=== PATIENT | male | born 1950 | race Caucasian/White ===

== ENCOUNTER 2016-07-28 18:02 | Emergency (ER) | payer BC, MEDICARE ==
[2016-07-28 18:38] VITALS: BP 144/83
[2016-07-28] MEDS ORDERED: Lidocaine 1% 50 ML MDV INJECT ONE (19:24)
--- NOTE | 2016-07-28 20:21 | EDM.PDOC ---
ED HPI GENERAL MEDICAL PROBLEM - General Chief Complaint: Upper Extremity Injury/Pain Stated Complaint: L THUMB INJURY Time Seen by Provider: 07/28/16 19:18 Source of Information: Reports: Patient History Limitations: Reports: No Limitations - History of Present Illness INITIAL COMMENTS - FREE TEXT/NARRATIVE: Patient is a 65-year-old male who presents to ED complaining of left thumb pain. Patient accidentally hit his thumb with a rubber mallet while pounding in a spike. Pain is isolated to the distal phalanx. Nailbed has been disrupted. Minimal bleeding present. This occurred at approximately 1630. Tetanus status is up-to-date. He denies any additional complaints. Onset: Today, Sudden Duration: Constant, Waxing/Waning Location: Reports: Upper Extremity, Left Quality: Reports: Ache Severity: Mild Context: Reports: Trauma Left Hand Pain Score (Numeric/FACES): 4 - Related Data Allergies Allergy/AdvReac Type Severity Reaction Status Date / Time codeine Allergy Swelling Verified 07/28/16 18:28 Penicillins Allergy Swelling Verified 07/28/16 18:28 Pertussis Vaccines Allergy Cannot Verified 07/28/16 18:27 Remember Home Meds: Home Meds Aspirin 81 mg PO DAILY 07/28/16 [History] Diclofenac Sodium [Voltaren] 1 - 2 gm TOP BID 07/28/16 [History] Doxycycline [Vibramycin] 100 mg PO Q12HR #14 cap 07/28/16 [Rx] Enalapril Maleate [Vasotec] 20 mg PO DAILY 07/28/16 [History] Pravastatin [Pravachol] 20 mg PO DAILY 07/28/16 [History] Past Medical History HEENT History: Reports: Impaired Vision Cardiovascular History: Reports: High Cholesterol, Hypertension, Other (See Below) Other Cardiovascular History: high calcium Genitourinary History: Reports: UTI, Recurrent Musculoskeletal History: Reports: Arthritis Oncologic (Cancer) History: Reports: Malignant Melanoma - Past Surgical History HEENT Surgical History: Reports: Adenoidectomy, Tonsillectomy Male Surgical History: Reports: Other (See Below) Other Male Surgeries/Procedures: prositis Social & Family History - Family History Family Medical History: Noncontributory Cardiac: Reports: CAD, High Cholesterol, Hypertension Neurological: Reports: Dementia, Parkinson's Immunologic: Reports: None Oncologic: Reports: Lung, Skin - Tobacco Use Smoking Status *Q: Never Smoker - Caffeine Use Caffeine Use: Reports: Coffee - Recreational Drug Use Recreational Drug Use: No Review of Systems - Review of Systems Review Of Systems: See Below Musculoskeletal: Reports: Hand Pain (left thumb) Skin: Reports: Bruising Neurological: Denies: Numbness, Tingling Trauma Exam - Physical Exam Exam: See Below Exam Limited By: No Limitations General Appearance: Reports: Alert, WD/WN, No Apparent Distress Ears: Reports: Hearing Grossly Normal Nose: Reports: Normal Inspection Throat/Mouth: Reports: Normal Voice, No Airway Compromise Neck: Reports: Other (supple) Respiratory Exam: Reports: No Respiratory Distress, No Accessory Muscle Use Cardiovascular: Reports: Normal Peripheral Pulses, Regular Rate, Rhythm Extremities: Other (Distal phalanx of left thumb: mild bleeding present. nailbed pulled away and deformed. hematoma noted. no sensory/motor deficits noted. ) Neurologic: Reports: No Motor/Sensory Deficits, Alert, Normal Mood/Affect, Oriented x 3 Skin: Reports: Normal Color, Warm/Dry ED TRAUMA EXTREMITY PROCEDURES - Laceration/Wound Repair Left Finger Lac/wound length in cm: 0 (nailbed) Anesthetic Type: digital Local anesthesia - Lidocaine (Xylocaine): 1% plain Local anesthetic volume: other (6) Skin prep: saline, sterile drape Exploration/Debridement/Repair: wound explored, in a bloodless field, no foreign material found Closed with: sutures Suture size: 4-0 # of sutures: 3 Suture type: prolene, interrupted, simple Drain placement: No Sterile dressing applied: nurse Tetanus status addressed: Yes Complications: No Course - Vital Signs Last Recorded V/S: Last Vital Signs Temp 97.8 F 07/28/16 18:34 Pulse 104 H 07/28/16 18:34 Resp 16 07/28/16 18:34 BP 144/83 H 07/28/16 18:34 Pulse Ox 96 07/28/16 18:34 - Orders/Labs/Meds Orders: Active Orders 24 hr Category Date Time Status Fingers Thumb Lt FA [CR] Stat Exams 07/28/16 19:23 Taken Meds: Medications Discontinued Medications Generic Name Dose Route Start Last Admin Trade Name Freq PRN Reason Stop Dose Admin Lidocaine HCl 50 ml 07/28/16 19:24 07/28/16 19:29 Xylocaine 1% INJECT 07/28/16 19:25 50 ml ONETIME ONE Administration - Re-Assessments/Exams Free Text/Narrative Re-Assessment/Exam: Ordered x-ray of the left thumb and 1% lidocaine. Tetanus is up to date. X-ray of the thumb revealed fracture to the distal phalanx. Ordered doxycycline 200mg PO now. Unable to completely assess nailbed due to excessive bleeding. Nail bed brought back to the normal anatomical position with no complications. Will discharge patient home with instructions. Prescription for doxycycline provided. Departure - Departure Time of Disposition: 20:52 Disposition: Home, Self-Care 01 Condition: good Clinical Impression: Open fracture of finger of left hand Qualifiers: Encounter type: initial encounter Finger: thumb Phalanx: distal Fracture alignment: nondisplaced Qualified Code(s): S62.525B - Nondisplaced fracture of distal phalanx of left thumb, initial encounter for open fracture - Discharge Information Prescriptions: Doxycycline [Vibramycin] 100 mg PO Q12HR #14 cap Instructions: Finger Fracture, [id number] Referrals: Eric Velasco Jr, MD [Primary Care Provider] - Forms: ED Department Discharge Additional Instructions: Take the doxycycline as prescribed. Keep splint in place for 1 month. Sutures need to be removed in 10 days. Elevate hand when able to reduce swelling and pain. Utilize ice as needed to reduce swelling. Take ibuprofen and tylenol in alternating fashion for pain. Return to the E.D. for increased redness, increased pain, or purulent drainage. - My Orders Last 24 Hours: My Active Orders 07/28/16 19:23 Fingers Thumb Lt FA [CR] Stat - Assessment/Plan Last 24 Hours: My Active Orders 07/28/16 19:23 Fingers Thumb Lt FA [CR] Stat
--- NOTE | 2016-07-29 09:49 | CR ---
Left thumb: Three views of the left thumb were obtained. Slightly comminuted tuft fracture is seen within the distal thumb. Mild degenerative change is noted within the MCP joint and IP joint. Prominent degenerative change is noted at the CMC joint of the thumb. Joint space narrowing also noted off the distal navicular bone. No additional fracture is seen. Impression: 1. Degenerative change within the thumb. 2. Slightly comminuted tuft fracture within the distal left thumb. Diagnostic code #3
== END 2016-07-28 21:02 | disposition home or self-care (01) ==
LOC: JD.ED 18:02
DX: S62.525B Nondisplaced fracture of distal phalanx of left thumb, initial encounter for open fracture (principal); I10 Essential (primary) hypertension; E78.00 Pure hypercholesterolemia, unspecified; M19.90 Unspecified osteoarthritis, unspecified site; Z88.5 Allergy status to narcotic agent; Z88.0 Allergy status to penicillin; Z88.8 Allergy status to other drugs, medicaments and biological substances; Z79.82 Long term (current) use of aspirin; Z79.899 Other long term (current) drug therapy; Z87.440 Personal history of urinary (tract) infections; Z98.890 Other specified postprocedural states; W22.8XXA Striking against or struck by other objects, initial encounter
CPT/HCPCS: 11760; 73140-26-FA; 73140-FA; 99283-25; 99284-25

== ENCOUNTER 2017-03-07 07:09 | Day surgery (SDC) | payer BC, MEDICARE ==
[~2017-03-07 07:09] MED LIST: Lactated Ringers 1,000 ML IV SCH; Lidocaine 1%/Sod Bicarbonate in NS 8.4% 1 ML Syringe IV PRN; Sodium Chloride 0.9% 10 ML Syringe FLUSH PRN
[2017-03-07] MEDS ORDERED: Lidocaine 1% 4 ML ONE (07:20)
[2017-03-07] MEDS ORDERED: Propofol 200 MG/20 ML SDV ONE (07:21)
[2017-03-07] MEDS ORDERED: fentaNYL 100 MCG/2 ML SDV ONE (07:21)
--- NOTE | 2017-03-07 07:23 | PCM.PREANE ---
Preanesthetic Assessment - Anesthesia/Transfusion/Family Hx Anesthesia History: Prior Anesthesia Without Reaction Family History of Anesthesia Reaction: No Transfusion History: No Prior Transfusion(s) Intubation History: Unknown - Review of Systems General: No Symptoms Pulmonary: No Symptoms (QUIT smoking 1982) Cardiovascular: No Symptoms (HTN/CAD), Palpitations Gastrointestinal: No Symptoms (GERD occasionally) Neurological: No Symptoms (bilateral hand pain/history of myalgias/potentially noted essential tremors.), Headache (vertigo/no migraine headaches noted.), Tingling (bilateral finger tips) Other: Reports: Easy Bruising, Sinus Problem (seasonal allergies), Neck Pain ( fell 20 yrs ago with neck pain noted since(no fractures)) - Physical Assessment NPO Status Date: 03/06/17 NPO Status Time: 22:00 Pulse: 81 O2 Sat by Pulse Oximetry: 96 Respiratory Rate: 16 Blood Pressure: 167/93 Temperature: 36.6 C Height: 1.8 m Weight: 125 kg ASA Class: 2 Mental Status: Alert & Oriented x3 Airway Class: Mallampati = 2 Dentition: Reports: Normal Dentition, Caries Thyro-Mental Finger Breadths: 3 Mouth Opening Finger Breadths: 3 ROM/Head Extension: Full Lungs: Clear to Auscultation, Normal Respiratory Effort Cardiovascular: Regular Rate, Regular Rhythm, No Murmurs - Allergies Allergies/Adverse Reactions: Allergies Allergy/AdvReac Type Severity Reaction Status Date / Time codeine Allergy Hives Verified 03/06/17 15:48 morphine Allergy Hives Verified 03/06/17 15:48 Penicillins Allergy Swelling Verified 03/06/17 15:48 Pertussis Vaccines Allergy Hives Verified 03/06/17 15:48 tetanus and diphtheria Allergy Hives Verified 03/06/17 15:48 toxoids - Anesthesia Plan Pre-Op Medication Ordered: None - Acknowledgements Anesthesia Type Planned: MAC Pt an Appropriate Candidate for the Planned Anesthesia: Yes Alternatives and Risks of Anesthesia Discussed w Pt/Guardian: Yes Pt/Guardian Understands and Agrees with Anesthesia Plan: Yes PreAnesthesia Questionnaire HEENT History: Reports: Other (See Below) Other HEENT History: tooth abcess, wears glasses Cardiovascular History: Reports: CAD, High Cholesterol Other Cardiovascular History: high calcium Respiratory History: Reports: None Gastrointestinal History: Reports: Colon Polyp, Other (See Below) Other Gastrointestinal History: amoebic dysentery Genitourinary History: Reports: None CASH ANALYST History: Reports: None Musculoskeletal History: Reports: Other (See Below) Other Musculoskeletal History: myalgia, hand pain/weakness, trench foot Neurological History: Reports: None Psychiatric History: Reports: None Endocrine/Metabolic History: Reports: None Hematologic History: Reports: None Immunologic History: Reports: None Oncologic (Cancer) History: Reports: None Dermatologic History: Reports: None - Past Surgical History Head Surgeries/Procedures: Reports: None HEENT Surgical History: Reports: Other (See Below) Other HEENT Surgeries/Procedures: basal cell carcinoma on ear with excision Cardiovascular Surgical History: Reports: None Respiratory Surgical History: Reports: None GI Surgical History: Reports: Colonoscopy Female Surgical History: Reports: None Male Surgical History: Reports: None Endocrine Surgical History: Reports: None Neurological Surgical History: Reports: None Musculoskeletal Surgical History: Reports: Other (See Below) Other Musculoskeletal Surgeries/Procedures:: right trigger finger release Oncologic Surgical History: Reports: None Dermatological Surgical History: Reports: None - SUBSTANCE USE Smoking Status *Q: Never Smoker Recreational Drug Use History: No - HOME MEDS Home Medications: Home Meds Enalapril Maleate [Vasotec] 20 mg PO DAILY 07/28/16 [History] Pravastatin [Pravachol] 20 mg PO DAILY 07/28/16 [History] Acetaminophen [Tylenol] 650 mg PO Q6H PRN 03/06/17 [History] Chlorthalidone 12.5 mg PO DAILY 03/06/17 [History] Fish Oil/[place]-3 Fatty Acids [Fish Oil 1,000 MG] 1,000 mg PO DAILY 03/06/17 [ History] Gluc 2KCl/Chondr/Semaj Hy/Hy Ac [Glucosamine & Chondroitin Cap] 1 cap PO DAILY [History] Ibuprofen 400 mg PO Q6H PRN 03/06/17 [History] Loratadine [Claritin] 10 mg PO DAILY 03/06/17 [History] Meclizine [Antivert] 25 mg PO DAILY 03/06/17 [History] Milk Thistle Fruit Extract [Milk Thistle] 1 cap PO DAILY 03/06/17 [History] Multivitamin [Zoo Chews] 1 tab PO DAILY 03/06/17 [History] Propylene Glycol/PEG 400/Pf [Systane 0.3-0.4% Eye Drops] 1 drop EYEBOTH BID [History] Ubidecarenone [Coq-10] 100 mg PO DAILY 03/06/17 [History] - CURRENT (IN HOUSE) MEDS Current Meds: Current Medications Lactated Ringer's (Ringers, Lactated) 1,000 mls @ 125 mls/hr IV ASDIRECTED NELSON Stop: 03/07/17 18:00 Lidocaine/Sodium Bicarbonate (Buffered Lidocaine 1% In Ns 8.4%) 0.25 ml IV ONETIME PRN PRN Reason: Prior to IV Start Stop: 03/07/17 18:00 Sodium Chloride (Saline Flush) 10 ml FLUSH ASDIRECTED PRN PRN Reason: Keep Vein Open Stop: 03/07/17 18:00
--- NOTE | 2017-03-07 07:56 | PCM.HP ---
H&P History of Present Illness - General Date of Service: 03/07/17 Admit Problem/Dx: Personal history of colon polyps Family history of colon cancer Source of Information: Patient History Limitations: Reports: No Limitations - History of Present Illness Initial Comments - Free Text/Narative: 66 year old male here for colonoscopy. Last colonoscopy in 2011, 3 adenomatous polyps found. He has a family history of colon cancer on fathers side. No hematochezia or melena. No chest pain or dyspnea on exertion. - Related Data Allergies/Adverse Reactions: Allergies Allergy/AdvReac Type Severity Reaction Status Date / Time codeine Allergy Hives Verified 03/06/17 15:48 morphine Allergy Hives Verified 03/06/17 15:48 Penicillins Allergy Swelling Verified 03/06/17 15:48 Pertussis Vaccines Allergy Hives Verified 03/06/17 15:48 tetanus and diphtheria Allergy Hives Verified 03/06/17 15:48 toxoids Home Medications: Home Meds Enalapril Maleate [Vasotec] 20 mg PO DAILY 07/28/16 [History] Pravastatin [Pravachol] 20 mg PO DAILY 07/28/16 [History] Acetaminophen [Tylenol] 650 mg PO Q6H PRN 03/06/17 [History] Chlorthalidone 12.5 mg PO DAILY 03/06/17 [History] Fish Oil/[place]-3 Fatty Acids [Fish Oil 1,000 MG] 1,000 mg PO DAILY 03/06/17 [ History] Gluc 2KCl/Chondr/Semaj Hy/Hy Ac [Glucosamine & Chondroitin Cap] 1 cap PO DAILY [History] Ibuprofen 400 mg PO Q6H PRN 03/06/17 [History] Loratadine [Claritin] 10 mg PO DAILY 03/06/17 [History] Meclizine [Antivert] 25 mg PO DAILY 03/06/17 [History] Milk Thistle Fruit Extract [Milk Thistle] 1 cap PO DAILY 03/06/17 [History] Multivitamin [Zoo Chews] 1 tab PO DAILY 03/06/17 [History] Propylene Glycol/PEG 400/Pf [Systane 0.3-0.4% Eye Drops] 1 drop EYEBOTH BID [History] Ubidecarenone [Coq-10] 100 mg PO DAILY 03/06/17 [History] Past Medical History HEENT History: Reports: Other (See Below) Other HEENT History: tooth abcess, wears glasses Cardiovascular History: Reports: CAD, High Cholesterol Other Cardiovascular History: high calcium Respiratory History: Reports: None Gastrointestinal History: Reports: Colon Polyp, Other (See Below) Other Gastrointestinal History: amoebic dysentery Genitourinary History: Reports: None HIDE WASHER History: Reports: None Musculoskeletal History: Reports: Other (See Below) Other Musculoskeletal History: myalgia, hand pain/weakness, trench foot Neurological History: Reports: None Psychiatric History: Reports: None Endocrine/Metabolic History: Reports: None Hematologic History: Reports: None Immunologic History: Reports: None Oncologic (Cancer) History: Reports: None Dermatologic History: Reports: None - Past Surgical History Head Surgeries/Procedures: Reports: None HEENT Surgical History: Reports: Other (See Below) Other HEENT Surgeries/Procedures: basal cell carcinoma on ear with excision Cardiovascular Surgical History: Reports: None Respiratory Surgical History: Reports: None GI Surgical History: Reports: Colonoscopy Female Surgical History: Reports: None Male Surgical History: Reports: None Endocrine Surgical History: Reports: None Neurological Surgical History: Reports: None Musculoskeletal Surgical History: Reports: Other (See Below) Other Musculoskeletal Surgeries/Procedures:: right trigger finger release Oncologic Surgical History: Reports: None Dermatological Surgical History: Reports: None Social & Family History - Family History Family Medical History: Noncontributory Cardiac: Reports: CAD, High Cholesterol, Hypertension Neurological: Reports: Dementia, Parkinson's Immunologic: Reports: None Oncologic: Reports: Lung, Skin - Tobacco Use Smoking Status *Q: Never Smoker - Caffeine Use Caffeine Use: Reports: Coffee - Recreational Drug Use Recreational Drug Use: No H&P Review of Systems - Review of Systems: Review Of Systems: See Below General: Reports: No Symptoms Pulmonary: Reports: No Symptoms Cardiovascular: Reports: No Symptoms Gastrointestinal: Reports: No Symptoms Exam - Exam Exam: See Below - Vital Signs Vital Signs: Last Vital Signs Temp 36.6 C 03/07/17 07:41 Pulse 81 03/07/17 07:41 Resp 16 03/07/17 07:41 BP 167/93 H 03/07/17 07:41 Pulse Ox 96 03/07/17 07:41 Weight: 125 kg - Exam General: Alert, Oriented Lungs: Clear to Auscultation, Normal Respiratory Effort Cardiovascular: Regular Rate, Regular Rhythm GI/Abdominal Exam: Normal Bowel Sounds, Soft *Q Meaningful Use (ADM) - VTE *Q VTE Criteria *Q: - Stroke *Q Stroke Criteria *Q: - AMI *Q AMI Criteria *Q: - Problem List (1) Personal history of colonic polyps SNOMED Code(s): 458863318 ICD Code: Z86.010 - PERSONAL HISTORY OF COLONIC POLYPS Status: Acute Current Visit: Yes (2) Family history of colon cancer SNOMED Code(s): 848958353 ICD Code: Z80.0 - FAMILY HISTORY OF MALIGNANT NEOPLASM OF DIGESTIVE ORGANS Status: Acute Current Visit: Yes Problem List Initiated/Reviewed/Updated: Yes Orders Last 24hrs: Active Orders 24 hr Category Date Time Status Peripheral IV Care [RC] . DIRECTED Care 03/07/17 00:01 Active Verify Patient Consent Obtain [RC] ASDIRECTED Care 03/07/17 00:01 Active Lactated Ringers [Ringers, Lactated] 1,000 ml Med 03/07/17 00:01 Active IV ASDIRECTED Lidocaine 1%/Sod Bicarbonate [Buffered Lidocaine 1% in Med 03/07/17 00:01 Active NS 8.4%] 0.25 ml IV ONETIME PRN Sodium Chloride 0.9% [Saline Flush] Med 03/07/17 00:01 Active 10 ml FLUSH ASDIRECTED PRN Medication Administration Instruction [OM.PC] Routine Oth 03/07/17 00:01 Ordered Peripheral IV Insertion Adult [OM.PC] Routine Oth 03/07/17 00:01 Ordered Medication Orders Lactated Ringer's (Ringers, Lactated) 1,000 mls @ 125 mls/hr IV ASDIRECTED NELSON Stop: 03/07/17 18:00 Last Admin: 03/07/17 07:30 Dose: 125 mls/hr Lidocaine/Sodium Bicarbonate (Buffered Lidocaine 1% In Ns 8.4%) 0.25 ml IV ONETIME PRN PRN Reason: Prior to IV Start Stop: 03/07/17 18:00 Last Admin: 03/07/17 07:30 Dose: 0.25 ml Sodium Chloride (Saline Flush) 10 ml FLUSH ASDIRECTED PRN PRN Reason: Keep Vein Open Stop: 03/07/17 18:00 Assessment/Plan Comment:: 66 year here for colonoscopy with family history of colon cancer and personal history of colon polyps. Proceed with colonoscopy, risks/benefits discussed.
--- NOTE | 2017-03-07 08:21 | PCM48HPAN ---
Post Anesthesia Note - EVALUATION WITHIN 48HRS OF ANESTHETIC Vital Signs in Normal Range: Yes Patient Participated in Evaluation: Yes Respiratory Function Stable: Yes Airway Patent: Yes Cardiovascular Function Stable: Yes Hydration Status Stable: Yes Pain Control Satisfactory: Yes Nausea and Vomiting Control Satisfactory: Yes Mental Status Recovered: Yes
--- NOTE | 2017-03-07 08:22 | PCM.OPNOTE ---
- General Post-Op/Procedure Note Date of Surgery/Procedure: 03/07/17 Operative Procedure(s): Colonoscopy with cold forceps biopsy Findings: colon polyps x 2, mild diverticulosis Pre Op Diagnosis: History of colon polyps, family history of colon cancer Post-Op Diagnosis: 3 mm transverse polyp, 2 mm descending polyp, mild diverticulosis Anesthesia Technique: MAC Primary Surgeon: Jorge Pace Anesthesia Provider: Katie Hinkle EBL in mLs: 5 Complications: None Condition: Good Free Text/Narrative:: After patient gave verbal and written consent he was placed on bp and pulse ox monitoring. He was given iv sedation which he tolerated well. The olympus colonoscope was inserted per rectum and advanced to the cecum without difficulty. The ileocecal valve and appendiceal orfice were imaged documenting cecal intubation. The prep was excellent. The views were excellent. The scope was slowly withdrawn and mucosa was carefully viewed. 2 small polyps were noted ; a 3 mm transverse polyp and 2 mm descending polyp. These were removed with cold forceps biopsy with good hemostasis. Mild diverticulosis was noted in the sigmoid colon. The scope was then retroflexed in the rectum and removed.
[2017-03-07 09:14] VITALS: BP 124/71
== END 2017-03-07 09:15 | disposition home or self-care (01) ==
LOC: JD.SDS 07:09
PROVIDERS: ATTEND Family Medicine
DX: Z12.11 Encounter for screening for malignant neoplasm of colon (principal); D12.3 Benign neoplasm of transverse colon; I25.10 Atherosclerotic heart disease of native coronary artery without angina pectoris; E78.00 Pure hypercholesterolemia, unspecified; Z86.010 Personal history of colon polyps; Z80.0 Family history of malignant neoplasm of digestive organs; K57.30 Diverticulosis of large intestine without perforation or abscess without bleeding; Z88.0 Allergy status to penicillin; Z88.8 Allergy status to other drugs, medicaments and biological substances; Z87.891 Personal history of nicotine dependence; Z79.899 Other long term (current) drug therapy
CPT/HCPCS: 45380; J3010; J7120; 00810; J2704

== ENCOUNTER 2019-07-07 20:22 | Emergency (ER) | payer BC, MEDICARE ==
[2019-07-07 20:37] VITALS: BP 160/96; PULSE 101
--- NOTE | 2019-07-07 20:55 | EDM.PDOC ---
ED HPI GENERAL MEDICAL PROBLEM - General Chief Complaint: Upper Extremity Injury/Pain Stated Complaint: RIGHT SHOULDER PAIN HEAD INJURY Time Seen by Provider: 07/07/19 20:39 Source of Information: Reports: Patient History Limitations: Reports: No Limitations - History of Present Illness INITIAL COMMENTS - FREE TEXT/NARRATIVE: Mr. Pal is a very pleasant 68-year-old gentleman with a past medical history significant for obesity, dyslipidemia, hypertension, and arthritis, who now presents the ED after he was cleaning out the back of his pickup truck around 19:45 this evening, when he rolled his right ankle, causing him to lose balance and fall out of the back of the truck, onto his right shoulder. He struck the right side of his head, abrading it, but he states that he did not lose consciousness, and he is not concerned that it is significantly injured. Similarly, he is not concerned about his right ankle, however, he planes of significant pain to his right shoulder, particularly with movement. No prior right shoulder injury. The patient denies recent fever, chills, sore throat, ear pain, nasal or sinus congestion, cough, dyspnea, chest pain, palpitations, nausea, vomiting, constipation, diarrhea, abdominal pain, urinary symptoms, recent weight gain or weight loss, recent bloody bowel movements or black bowel movements, recent joint aches, headaches, or rashes. Here in the ED, the patient's initial BP is found to be elevated at 160/96, with a tachycardia of 101 bpm. He is afebrile, saturating 96% on room air. The patient's PCP is Dr. Eric Velasco. His Cardiology midlevel is ELVIN Rider. Right Ankle Pain Score (Numeric/FACES): 2 Right Shoulder Pain Score (Numeric/FACES): 5 - Related Data Allergies Allergy/AdvReac Type Severity Reaction Status Date / Time codeine Allergy Hives Verified 07/07/19 20:37 morphine Allergy Hives Verified 07/07/19 20:37 Penicillins Allergy Swelling Verified 07/07/19 20:37 Pertussis Vaccines Allergy Hives Verified 07/07/19 20:37 tetanus and diphtheria Allergy Hives Verified 07/07/19 20:37 toxoids Home Meds: Home Meds Enalapril Maleate [Vasotec] 20 mg PO DAILY 07/28/16 [History] Pravastatin [Pravachol] 40 mg PO BEDTIME 07/28/16 [History] Acetaminophen [Tylenol] 650 mg PO Q6H PRN 03/06/17 [History] Chlorthalidone 12.5 mg PO DAILY 03/06/17 [History] Glucosam/Chondr/Collagn/Hyalur [Glucosamine & Chondroitin Cap] 1 cap PO DAILY [History] Ibuprofen 400 mg PO Q6H PRN 03/06/17 [History] Loratadine [Claritin] 10 mg PO DAILY PRN 03/06/17 [History] Meclizine [Antivert] 25 mg PO DAILY PRN 03/06/17 [History] Milk Thistle Seed Extract [Milk Thistle] 1 cap PO DAILY 03/06/17 [History] Multivitamin [Zoo Chews] 1 tab PO DAILY 03/06/17 [History] Propylene Glycol/PEG 400/Pf [Systane 0.3-0.4% Eye Drops] 1 drop EYEBOTH BID [History] Ubidecarenone [Coq-10] 100 mg PO DAILY 03/06/17 [History] Past Medical History HEENT History: Reports: Impaired Vision Other HEENT History: wears glasses Cardiovascular History: Reports: High Cholesterol, Hypertension Gastrointestinal History: Reports: Colon Polyp Musculoskeletal History: Reports: Arthritis Endocrine/Metabolic History: Reports: Obesity/BMI 30+ Oncologic (Cancer) History: Reports: Basal Cell Carcinoma (ear) - Past Surgical History HEENT Surgical History: Reports: Adenoidectomy, Tonsillectomy GI Surgical History: Reports: Colonoscopy Musculoskeletal Surgical History: Reports: Other (See Below) (Right trigger finger release) Oncologic Surgical History: Reports: Other (See Below) (BCC excised off ear) Social & Family History - Family History Family Medical History: Noncontributory Cardiac: Reports: CAD, High Cholesterol, Hypertension Neurological: Reports: Dementia, Parkinson's Immunologic: Reports: None Oncologic: Reports: Lung, Skin - Tobacco Use Smoking Status *Q: Former Smoker Years of Tobacco use: 19 Packs/Tins Daily: 2.5 Month/Year Tobacco Last Used: Quit 1982 - Caffeine Use Caffeine Use: Reports: None - Alcohol Use Alcohol Use History: Yes Alcohol Use Frequency: Socially - Recreational Drug Use Recreational Drug Use: No - Living Situation & Occupation Living situation: Reports: , with Spouse 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 ED EXAM, GENERAL - Physical Exam Exam: See Below Exam Limited By: No Limitations General Appearance: Alert, WD/WN, No Apparent Distress Eye Exam: Bilateral Eye: EOMI, Normal Inspection Ears: Normal External Exam, Normal Canal, Hearing Grossly Normal, Normal TMs Nose: Normal Inspection, Normal Mucosa, No Blood Throat/Mouth: Normal Inspection, Normal Lips, Normal Teeth, Normal Gums, Normal Oropharynx, Normal Voice, No Airway Compromise Head: Normocephalic, Other (Approximately 3 to 4 cm diameter abrasion to the right scalp. Minimal swelling.) Neck: Normal Inspection, Supple, Non-Tender, Full Range of Motion Respiratory/Chest: No Respiratory Distress, Lungs Clear, Normal Breath Sounds, No Accessory Muscle Use, Chest Non-Tender Cardiovascular: Normal Peripheral Pulses, Regular Rate, Rhythm, No Edema, No Gallop, No JVD, No Murmur, No Rub Peripheral Pulses: 4+: Radial (L), Radial (R) GI/Abdominal: Normal Bowel Sounds, Soft, Non-Tender, No Organomegaly, No Distention, No Abnormal Bruit, No Mass (Male) Exam: Deferred Rectal (Males) Exam: Deferred Back Exam: Normal Inspection, Full Range of Motion, NT Extremities: Normal Capillary Refill, Other (There is an abrasion to the lateral aspect of the patient's upper right arm. There is tenderness to palpation along the lateral aspect of the patient's right shoulder and mild tenderness over his right A-C joint. I am able to passively raise the patient' s right hand up over his head, but the patient complained of considerable discomfort. Significant pain with attempts at abduction and external rotation against resistance. Much less pain induced with adduction, internal rotation, flexion, and extension against resistance. Neurovascular status of the right upper extremity is intact.) Neurological: Alert, Oriented, CN II-XII Intact, Normal Cognition, No Motor/ Sensory Deficits Psychiatric: Normal Affect Skin Exam: Warm, Dry, Intact, Normal Color, No Rash Course - Vital Signs Last Recorded V/S: Last Vital Signs Temp 36.9 C 07/07/19 20:32 Pulse 101 H 07/07/19 20:32 Resp 18 07/07/19 20:32 BP 160/96 H 07/07/19 20:32 Pulse Ox 96 07/07/19 20:32 - Orders/Labs/Meds Orders: Active Orders 24 hr Category Date Time Status Shoulder 1V Lt [CR] Stat Exams 07/07/19 20:48 Taken Shoulder Comp Rt [CR] Stat Exams 07/07/19 20:47 Taken - Re-Assessments/Exams Free Text/Narrative Re-Assessment/Exam: 07/07/19 20:49 The patient has an abrasion to the right side of his head, but he was not knocked unconscious, and he is not concerned that he is significantly injured in that area. Similarly, while he rolled his right ankle, he is not concerned that it is broken and is not requesting additional evaluation. His main concern is his right shoulder. I have ordered x-rays of his right shoulder, along with a comparative left shoulder x-ray. The patient declined an offer for pain medication. 07/07/19 21:37 3-view radiographs of the right shoulder, with a single view radiograph of the left shoulder for comparison, appears to demonstrate an A-C separation, likely Type II. No fracture or other dislocation identified. Formal read per the Radiologist pending. 07/07/19 21:47 X-ray results discussed with the patient. The patient will be placed into a shoulder sling, and I will refer him to Ortho. He prefers to just take over-the -counter ibuprofen as needed for discomfort. I am also recommending that he apply ice packs. He again declined an offer for pain medication here. Departure - Departure Time of Disposition: 21:49 Disposition: Home, Self-Care 01 Condition: Good Clinical Impression: Acromioclavicular joint separation, type 2 - Discharge Information *PRESCRIPTION DRUG MONITORING PROGRAM REVIEWED*: Not Applicable *COPY OF PRESCRIPTION DRUG MONITORING REPORT IN PATIENT JATINDER: Not Applicable Referrals: Eric Velasco Jr, MD [Primary Care Provider] - Jordy Greenfield MD [Physician] - Inna Smith PA-C [Ordering Only Provider] - Forms: ED Department Discharge Additional Instructions: You were seen in the emergency room after losing your balance and falling out of the back of your pickup truck onto your right shoulder. Work-up in the ER included x-rays of your right shoulder, as well as a comparison x-ray of your left shoulder. Your x-rays appear to indicate that you have a right acromioclavicular separation. Your right arm has been placed into an arm sling. Wear this all day, however, you do not wear it to bed. Apply ice packs to the top of your right shoulder as much as possible for the next 2 days, to help minimize swelling. Take [id number] ibuprofen, 3 tablets (600 mg) every 8 hours, with food, [id number], as needed for discomfort. Follow-up with the Orthopedic Surgeon Dr. Jordy Greenfield at the next available appointment, for further evaluation and treatment. If any other problems, please do not hesitate to return to the ER. Sepsis Event Note - Evaluation Sepsis Screening Result: No Definite Risk - Focused Exam Vital Signs: Vital Signs Temp Pulse Resp BP Pulse Ox 07/07/19 20:32 36.9 C 101 H 18 160/96 H 96 Date Exam was Performed: 07/07/19 Time Exam was Performed: 21:37 - My Orders Last 24 Hours: My Active Orders 07/07/19 20:47 Shoulder Comp Rt [CR] Stat 07/07/19 20:48 Shoulder 1V Lt [CR] Stat - Assessment/Plan Last 24 Hours: My Active Orders 07/07/19 20:47 Shoulder Comp Rt [CR] Stat 07/07/19 20:48 Shoulder 1V Lt [CR] Stat
--- NOTE | 2019-07-08 09:43 | CR ---
Right shoulder: 3 views of the right shoulder were obtained. Comparison: No previous right shoulder study. Slight bony exostosis noted off the acromion process. There may be slight rotator cuff calcifications. Slight spurring is noted off the glenoid rim. No acute fracture or, dislocation or other bony abnormality is seen. Impression: 1. Questionable calcification within the rotator cuff. Difficult to exclude chronic calcific tendinitis. 2. Inferior bony exostosis off the acromion process which may cause some impingement. 3. Minimal glenoid rim spurring without acute abnormality. Diagnostic code #3 This report was dictated in MDT
--- NOTE | 2019-07-08 09:43 | CR ---
Left shoulder: AP view of the left shoulder was obtained. Comparison: No previous left shoulder study. Joint space narrowing is noted within the acromioclavicular joint with superior and inferior spurring. Small inferior hock is noted off the acromion process. Mild spurring is noted off the glenoid rim. No acute fracture or dislocation is seen. Impression: 1. Degenerative change as noted above. Diagnostic code #2 This report was dictated in MDT
== END 2019-07-07 22:06 | disposition home or self-care (01) ==
LOC: JD.ED 20:22
DX: S43.101A Unspecified dislocation of right acromioclavicular joint, initial encounter (principal); S00.01XA Abrasion of scalp, initial encounter; E78.5 Hyperlipidemia, unspecified; I10 Essential (primary) hypertension; M19.90 Unspecified osteoarthritis, unspecified site; E66.9 Obesity, unspecified; Z68.39 Body mass index [BMI] 39.0-39.9, adult; Z87.891 Personal history of nicotine dependence; Z88.5 Allergy status to narcotic agent; Z88.0 Allergy status to penicillin; Z91.09 Other allergy status, other than to drugs and biological substances; W01.0XXA Fall on same level from slipping, tripping and stumbling without subsequent striking against object, initial encounter
CPT/HCPCS: 73020-26-LT; 73020-LT; 73030-26-RT; 73030-RT; 99283; 99283-25

== ENCOUNTER 2025-02-15 08:20 | Day surgery (SDC) | payer MEDICARE, BC ==
[~2025-02-15 08:20] MED LIST changes: -Lactated Ringers 1,000 ML IV SCH; -Lidocaine 1%/Sod Bicarbonate in NS 8.4% 1 ML Syringe IV PRN
[2025-02-15] MEDS: Lactated Ringers 1,000 ML IV SCH (08:45)
[2025-02-15] MEDS ORDERED: Sodium Chloride 0.9% 10 ML Syringe FLUSH SCH (09:00)
[2025-02-15] MEDS ORDERED: Propofol 200 MG/20 ML SDV ONE ×3 (09:08→10:21)
[2025-02-15] MEDS ORDERED: Lidocaine 1% 4 ML ONE (09:53)
[2025-02-15 10:33] VITALS: BP 116/85; PULSE 70
== END 2025-02-15 11:15 | disposition home or self-care (01) ==
LOC: JD.SDS 08:20
PROVIDERS: ATTEND Surgery
DX: Z12.11 Encounter for screening for malignant neoplasm of colon (principal); D12.6 Benign neoplasm of colon, unspecified; K63.5 Polyp of colon; I10 Essential (primary) hypertension; I25.10 Atherosclerotic heart disease of native coronary artery without angina pectoris; E78.2 Mixed hyperlipidemia; E66.9 Obesity, unspecified; Z68.41 Body mass index [BMI] 40.0-44.9, adult; Z79.899 Other long term (current) drug therapy
CPT/HCPCS: 45385; 88305; J2003; J2704; J7120; 00811; 99100